=== PATIENT | female | born 1990 | race Caucasian/White ===

== ENCOUNTER 2019-02-26 02:55 | Inpatient (IN) ==
[2019-02-26] MEDS ORDERED: OXYTOCIN 30 UNITS/500 ML BAG IV PRN ×2 (03:29→10:16)
[2019-02-26] MEDS ORDERED: ePHEDrine sulfate 50 MG/ML AMP ONE (03:45)
[2019-02-26] MEDS ORDERED: BUPIVACAINE 0.25% 30 ML VIAL ONE ×2 (03:45→05:19)
[2019-02-26] MEDS ORDERED: fentaNYL citrate 100 MCG/2 ML VIAL ONE (03:46)
[2019-02-26] MEDS ORDERED: fentaNYL 2MCG/ML ROPIV 1.25MG/ML 100 ML BAG EPI ONE (03:47)
[2019-02-26 03:49] LABS: Hematocrit (blood only) 33.1 % (37-47); Hemoglobin 11.7 g/dL (12.0-16.0); Mean Corpuscular Hemoglobin 32.2 pg (25-34); Mean Corpuscular Volume 91.2 fL (80-100); Mean Platelet Volume 10.7 fL (7.4-10.4); Platelet Count 199 K/uL (130-400); RDW Coefficient of Variation 12.7 % (11.5-14.5); Red Blood Count 3.63 M/uL (4.2-5.4); White Blood Count 14.86 K/uL (4.8-10.8)
[2019-02-26] MEDS: LACTATED RINGER'S 1,000 ML IV PRN ×2 (03:50→04:43)
[2019-02-26 04:04] LABS: Mean Corpuscular Hgb Conc 35.3 g/dL (32-36)
[2019-02-26 04:06] LABS: Albumin Level 2.7 gm/dl (3.4-5.0); Calcium 8.6 mg/dl (8.5-10.1); Creatinine Clr Calc Pharmacy 133.3 ml/min; Est GFR (Non-African American) 114.8; Potassium 3.6 mmol/L (3.5-5.1)
[2019-02-26 04:08] LABS: Albumin Globulin Ratio 0.6 (0.9-2); Bilirubin,Total 0.3 mg/dl (0.2-1); Globulin 4.2 gm/dl (2.5-4.0); Total Protein 6.9 gm/dl (6.4-8.2)
--- NOTE | 2019-02-26 04:33 | Anesthesiology Consultation ---
Date of Service February 26, 2019 Assessment & Plan (1) Encounter for pre-operative examination: Chart Review Chart Review: Patient NOT seen in Pre Admission Testing and Acceptable Risk for Labor Epidural Consults Requested none ASA ASA2 Proposed Anesthesia Anesthesia Type: Labor Epidural Risk / Benefits Reviewed With: PT / POA / Parent / Guardian, Accepts Plan and Informed Consent Obtained History Height/Weight Height: 5 ft 5 in Weight: 94.347 kg Allergies Allergy/AdvReac Type Severity Reaction Status Date / Time amoxicillin Allergy HIVES, RASH Verified 02/26/19 03:11 Medications Home Medications Medication Instructions Recorded Confirmed Last Taken prenat.vits,angel,qtq-jmnl-bnmwm 1 tsp PO DAILY 12/12/18 02/26/19 02/25/19 07:30 Active Medications Generic Name Dose Route Start Last Admin Trade Name Freq PRN Reason Stop Dose Admin Lactated Ringer's 1,000 mls @ 125 mls/hr 02/26/19 03:29 02/26/19 04:43 Lr IV 03/28/19 03:28 125 mls/hr .Q8H PRN Administration L&D Protocol Protocol NPO Date Last Intake of Fluids: 02/26/19 Time Last Intake of Fluids: 05:15 Date Last Intake of Solids: 02/25/19 Time Last Intake of Solids: 18:30 Past Medical History Medical History History of varicella Hx of migraines Exercise / Class Metabolic Activity III < 4 Walking/Shop/Light housework Past Family History Family History Father Stroke Diabetes Hypertension Mother Diabetes Osteoporosis Thyroid disease Past Surgical History Surgical History H/O hand surgery broken thumb S/P wisdom tooth extraction 2008 Past Anesthesia History No Hx of Anesthesia Complications History of PONV No Hx of PONV and No Hx of Motion Sickness Social History Smoking Status: Never smoker Hx Alcohol Use: No Hx Substance Use: No Review of Systems Patient denies history of abnormal bleeding or bleeding disorder. Patient denies active use of anticoagulants other than low dose aspirin. Patient denies numbness, tingling or weakness in lower extremities. Physical Exam Vital Signs Last Vital Signs Temp 36.8 C 02/26/19 03:12 Pulse 70 02/26/19 05:09 Resp 18 02/26/19 05:04 BP 142/80 H 02/26/19 05:09 Pulse Ox 94 02/26/19 05:07 Constitutional not obese (Gravid uterus) ENMT Mouth: no TMJ abnormality and oral opening not small Thyromental Distance: > or= 3.5 Finger Breadths Mallampati Class: II Neck normal visual inspection; neck extension not limited Respiratory normal respiratory effort Auscultation: lungs clear to auscultation bilaterally Cardiovascular Rate/Rhythm: regular rate and regular rhythm Heart Sounds: no murmur Neurologic moves all extremities Psychiatric Orientation: alert and oriented x 3 Testing Laboratory Results 02/26/19 03:38 02/26/19 03:38
[2019-02-26] MEDS ORDERED: NALOXONE HCL 0.4 MG/1 ML VIAL/CARP IV PRN (05:23)
[2019-02-26] MEDS ORDERED: NALOXONE HCL 1 MG in SODIUM CHLORIDE 0.9% 1000ML 1,000 ML IV PRN (05:23)
[2019-02-26] MEDS ORDERED: ONDANSETRON INJ 2 MG/ML 2 ML VIAL IV PRN (05:23)
[2019-02-26] MEDS ORDERED: DiphenhydrAMINE HCL 50 MG/ML VIAL IV PRN (05:23)
[2019-02-26] MEDS ORDERED: ePHEDrine sulfate 50 MG/ML AMP IV PRN (05:23)
[2019-02-26] MEDS ORDERED: fentaNYL 2MCG/ML ROPIV 1.25MG/ML 100 ML BAG EPI PRN (05:23)
[2019-02-26] MEDS ORDERED: NALBUPHINE HCL INJ 10 MG/ML AMP IV PRN (05:23)
--- NOTE | 2019-02-26 08:46 | History & Physical Report ---
Date of Service February 26, 2019 Assessment & Plan (1) Supervision of normal first : begin 2nd stage. fhts reassuring overall. History of Present Illness Chief Complaint: Regular ctx Primary Care Provider: NO PCP 28yo at 40+wks ega presents to L&D with above cc. Contractions closer and stronger and came to L&D and was 4cm dilated requesting epidural. no rom. no vb. +FM pnc c/b postdates pnl rh pos, rubella immune, gbs negative obh: g1 gynh: no stds, normal pap smears pmh: neg psh: thumb surgery, wisdom teeth Allergies Allergy/AdvReac Type Severity Reaction Status Date / Time amoxicillin Allergy HIVES, RASH Verified 02/26/19 03:11 Home Medications Home Medications Medication Instructions Recorded Confirmed Type prenat.vits,angel,lwg-sygg-baafq 1 tsp PO DAILY 12/12/18 02/26/19 History Patient History Medical History History of varicella Hx of migraines Surgical History H/O hand surgery broken thumb S/P wisdom tooth extraction 2008 Family History Father Stroke Diabetes Hypertension Mother Diabetes Osteoporosis Thyroid disease Social History Preferred Language: Turkmen Communication Ability: Effective Construction Code Administrator Required: No Beliefs That Will Affect Care: None marital status: Current Living Situation: Spouse Current Living Situation Comment: house with Other Information That Helps Us Care for You: No Feels Safe at Home: Yes Safety Concerns: Feels Safe At This Time Smoking Status: Never smoker Hx Alcohol Use: No Hx Substance Use: No Review of Systems as per Subjective / HPI Physical Exam Constitutional: WD/WN, vitals as above Gastrointestinal (Abdomen): soft gravid nt Musculoskeletal: tr edema nontender calves Neurologic: grossly normal Psychiatric: A+Ox3, euthymic affect Genitourinary: Manual OB Exam: + cervical dilation 10 cm, + cervical effacement 100%, + station + 2 and + amniotic fluid meconium (thick) Results & Data Vital Signs (Past 12 Hours) Vital Signs Temp Pulse Resp BP Pulse Ox 02/26/19 08:38 80 131/64 02/26/19 08:37 126 H 91 02/26/19 08:35 117 H 95 02/26/19 08:31 87 88 L 02/26/19 08:30 87 95 02/26/19 08:25 111 H 96 02/26/19 08:23 83 125/57 L 02/26/19 08:20 110 H 96 02/26/19 08:18 82 89 L 02/26/19 08:15 84 85 L 02/26/19 08:12 84 89 L 02/26/19 08:10 83 97 02/26/19 08:08 83 119/65 02/26/19 08:05 124 H 96 02/26/19 08:00 104 H 97 02/26/19 07:55 86 129/62 98 02/26/19 07:54 104 H 92 02/26/19 07:50 87 98 02/26/19 07:45 96 H 100 02/26/19 07:40 81 99 02/26/19 07:37 78 123/68 02/26/19 07:35 80 98 02/26/19 07:34 87 91 02/26/19 07:30 80 98 02/26/19 07:25 76 98 02/26/19 07:23 68 118/61 02/26/19 07:20 86 99 02/26/19 07:15 74 98 02/26/19 07:10 81 97 02/26/19 07:07 75 112/58 L 02/26/19 07:05 76 98 02/26/19 07:04 98.4 F 20 02/26/19 07:00 86 98 02/26/19 06:55 71 97 02/26/19 06:53 74 119/59 L 02/26/19 06:50 77 97 02/26/19 06:45 69 99 02/26/19 06:40 81 99 02/26/19 06:38 80 114/83 02/26/19 06:35 78 98 02/26/19 06:30 79 99 02/26/19 06:25 69 98 02/26/19 06:22 81 143/73 H 02/26/19 06:20 76 97 02/26/19 06:15 78 98 02/26/19 06:10 98.4 F 73 18 97 02/26/19 06:07 80 124/66 02/26/19 06:05 81 98 02/26/19 06:00 79 99 02/26/19 05:55 78 98 02/26/19 05:52 78 127/69 02/26/19 05:50 72 99 02/26/19 05:45 74 18 97 02/26/19 05:40 82 98 02/26/19 05:37 74 126/68 02/26/19 05:35 73 140/79 99 02/26/19 05:33 73 138/79 02/26/19 05:31 75 132/73 02/26/19 05:30 81 100 02/26/19 05:29 88 141/77 H 91 02/26/19 05:27 76 145/77 H 02/26/19 05:25 67 128/67 96 02/26/19 05:23 79 141/78 H 02/26/19 05:22 69 93 02/26/19 05:21 83 141/76 H 02/26/19 05:20 79 97 02/26/19 05:19 73 138/69 02/26/19 05:17 80 134/67 02/26/19 05:15 81 18 136/66 99 02/26/19 05:14 68 94 02/26/19 05:13 74 156/68 H 02/26/19 05:11 65 150/83 H 02/26/19 05:10 76 99 02/26/19 05:09 70 142/80 H 02/26/19 05:07 74 147/82 H 94 02/26/19 05:05 67 155/72 H 99 02/26/19 05:04 18 02/26/19 05:03 68 153/83 H 02/26/19 05:01 72 139/79 02/26/19 05:00 73 18 97 02/26/19 04:55 67 98 02/26/19 04:50 61 98 02/26/19 04:45 60 99 02/26/19 04:41 20 02/26/19 04:40 74 97 02/26/19 03:12 98.2 F 73 18 146/85 H 02/26/19 03:10 66 166/94 H Code Status & VTE Plan VTE Prophylaxis Plan VTE Prophylaxis will be ordered: No Monitoring External Monitor 155 mod variability, +variables Tocodynamometer q2
--- NOTE | 2019-02-26 09:35 | Labor Progress Brief Note ---
Date of Service February 26, 2019 Subjective Reason For Note: Routine Evaluation pushing effectively Assessment & Plan (1) Supervision of normal first : pushing effectively, fhts categ 2, anticip delivery soon. Physical Exam Constitutional: WD/WN, vitals as above Genitourinary: Manual OB Exam: + cervical dilation 10 cm, + cervical effacement 100%, + station + 3 and + amniotic fluid meconium OB Exam Monitor Tracing: + external FHT monitor used (150 mod variability, variables), + category II and + normal FHT variability Results & Data Vital Signs (Past 12 Hours) Vital Signs Temp Pulse Resp BP Pulse Ox 02/26/19 09:30 88 95 02/26/19 09:25 80 97 02/26/19 09:22 84 151/70 H 89 L 02/26/19 09:20 84 95 02/26/19 09:15 85 96 02/26/19 09:12 78 89 L 02/26/19 09:10 91 H 94 02/26/19 09:07 86 126/63 02/26/19 09:05 91 H 95 02/26/19 09:00 84 96 02/26/19 08:58 100 H 90 02/26/19 08:55 89 96 02/26/19 08:53 81 128/64 02/26/19 08:50 85 97 02/26/19 08:45 121 H 96 02/26/19 08:43 91 H 91 02/26/19 08:40 92 H 96 02/26/19 08:38 80 131/64 02/26/19 08:37 126 H 91 02/26/19 08:35 117 H 95 02/26/19 08:31 87 88 L 02/26/19 08:30 87 95 02/26/19 08:25 111 H 96 02/26/19 08:23 83 125/57 L 02/26/19 08:20 110 H 96 02/26/19 08:18 82 89 L 02/26/19 08:15 84 85 L 02/26/19 08:12 84 89 L 02/26/19 08:10 83 97 02/26/19 08:08 83 119/65 02/26/19 08:05 124 H 96 02/26/19 08:00 104 H 97 02/26/19 07:55 86 129/62 98 02/26/19 07:54 104 H 92 02/26/19 07:50 87 98 02/26/19 07:45 96 H 100 02/26/19 07:40 81 99 02/26/19 07:37 78 123/68 02/26/19 07:35 80 98 02/26/19 07:34 87 91 02/26/19 07:30 80 98 02/26/19 07:25 76 98 02/26/19 07:23 68 118/61 02/26/19 07:20 86 99 02/26/19 07:15 74 98 02/26/19 07:10 81 97 02/26/19 07:07 75 112/58 L 02/26/19 07:05 76 98 02/26/19 07:04 98.4 F 20 02/26/19 07:00 86 98 02/26/19 06:55 71 97 02/26/19 06:53 74 119/59 L 02/26/19 06:50 77 97 02/26/19 06:45 69 99 02/26/19 06:40 81 99 02/26/19 06:38 80 114/83 02/26/19 06:35 78 98 02/26/19 06:30 79 99 02/26/19 06:25 69 98 02/26/19 06:22 81 143/73 H 02/26/19 06:20 76 97 02/26/19 06:15 78 98 02/26/19 06:10 98.4 F 73 18 97 02/26/19 06:07 80 124/66 02/26/19 06:05 81 98 02/26/19 06:00 79 99 02/26/19 05:55 78 98 02/26/19 05:52 78 127/69 02/26/19 05:50 72 99 02/26/19 05:45 74 18 97 02/26/19 05:40 82 98 02/26/19 05:37 74 126/68 02/26/19 05:35 73 140/79 99 02/26/19 05:33 73 138/79 02/26/19 05:31 75 132/73 02/26/19 05:30 81 100 02/26/19 05:29 88 141/77 H 91 02/26/19 05:27 76 145/77 H 02/26/19 05:25 67 128/67 96 02/26/19 05:23 79 141/78 H 02/26/19 05:22 69 93 02/26/19 05:21 83 141/76 H 02/26/19 05:20 79 97 02/26/19 05:19 73 138/69 02/26/19 05:17 80 134/67 02/26/19 05:15 81 18 136/66 99 02/26/19 05:14 68 94 02/26/19 05:13 74 156/68 H 02/26/19 05:11 65 150/83 H 02/26/19 05:10 76 99 02/26/19 05:09 70 142/80 H 02/26/19 05:07 74 147/82 H 94 02/26/19 05:05 67 155/72 H 99 02/26/19 05:04 18 02/26/19 05:03 68 153/83 H 02/26/19 05:01 72 139/79 02/26/19 05:00 73 18 97 02/26/19 04:55 67 98 02/26/19 04:50 61 98 02/26/19 04:45 60 99 02/26/19 04:41 20 02/26/19 04:40 74 97 02/26/19 03:12 98.2 F 73 18 146/85 H 02/26/19 03:10 66 166/94 H
[2019-02-26] MEDS ORDERED: miSOPROStoL 200 MCG TAB ONE (09:55)
[2019-02-26] MEDS ORDERED: ACETAMINOPHEN 325 MG TAB PO PRN (10:02)
[2019-02-26] MEDS ORDERED: ACETAMINOPHEN W/CODEINE #3 1 TAB PO PRN (10:02)
--- NOTE | 2019-02-26 10:06 | Delivery Summary ---
Vaginal Delivery Summary Date of Service February 26, 2019 The patient dilated to complete and pushed to deliver a viable male infant s 8 and 8 via over intact perineum. Mouth and nose bulb suctioned at perineum. Body cord noted. Shoulders and body delivered with ease. Infant was vigorous and crying at and covered in meconium. Cord clamped at 30 seconds of life and infant to maternal abdomen where the cord was then doubly clamped and cut. Placenta delivered spontaneously and intact, three-vessel cord. Hemostasis not achieved with dilute pitocin and bimanual uterine massage and therefore 800mcg rectal cytotec administered and tone of uterus improved. Bladder had recently been drained for 200cc of urine and not palpably full. Cervix and sulci intact. Small vaginal laceration on right extending to right labia noted and repaired with 3-0 vicryl. EBL 500 cc. Mother and baby stable recovery.
[2019-02-26] MEDS ORDERED: HYDROCORTISONE ACETATE 25 MG SUPP PR PRN (10:16)
[2019-02-26] MEDS ORDERED: miSOPROStoL 200 MCG TAB PR ONE (10:16)
[2019-02-26] MEDS ORDERED: SUPERCREAM 0.870% 15 GM JAR EXT PRN (10:16)
[2019-02-26] MEDS ORDERED: DIPHTHERIA/TETANUS/PERTUSSIS 0.5 ML SYR/VIAL IM ONE (10:16)
[2019-02-26] MEDS ORDERED: BENZOCAINE 20% AER SPR 82.5 GM CAN EXT PRN (10:16)
[2019-02-26] MEDS ORDERED: OXYTOCIN 20 UNITS in LACTATED RINGER'S 1,000 ML IV SCH (10:30)
--- NOTE | 2019-02-26 10:36 | Anesthesia Procedure Note ---
Date of Service February 26, 2019 Anesthesia Post Epidural Note Vital Signs Vital Signs: Temp Pulse Resp BP Pulse Ox 98.4 F 85 20 130/64 96 02/26/19 07:04 02/26/19 10:22 02/26/19 07:04 02/26/19 10:22 02/26/19 09:50 Notes Mental Status: alert / awake / arousable and participated in evaluation Nausea / Vomiting: adequately controlled Pain: adequately controlled Airway Patency, RR, SpO2: stable & adequate BP & HR: stable & adequate Hydration State: stable & adequate Neuraxial Anesthesia: was administered and sensory block is resolving Anesthetic Complications: no major complications apparent and Pt Satisfied with anesthetic care Epidural: Removed without complications and With tip intact
[2019-02-26] MEDS: IBUPROFEN 600 MG TAB PO PRN ×2 (10:57→18:50)
[2019-02-26] MEDS: DOCUSATE SODIUM 100 MG CAP PO SCH (21:21)
[2019-02-27] MEDS: IBUPROFEN 600 MG TAB PO PRN ×4 (02:51→23:52)
--- NOTE | 2019-02-27 05:25 | Obstetrical Progress Note ---
Date of Service February 27, 2019 Assessment & Plan (1) : 28 yo s/p VD @ 40W4D -PPD# 1 - GBS negative, Blood Type A+ - Feels well today. Eating well, voiding well, ambulating well. - Pain well controlled. - Routine post care - After discharge will have [address] Ross. Supervising Physician Co-Signing Physician Notes Resident Physician Supervision Note: I was present with Dr. Dockery during the history and exam. I discussed the case with the resident and agree with the findings and plan as documented in the note. Any exceptions or clarifications are listed here: doing well, bleeding tapering, . ff 2 down nt. nt calves, some tr edema. routine care. hgb pending. Documented By: Azul Ross MD, FACOG Subjective Doing well this morning, she is describes it as going, "good." Bleeding is about a heavy period. Pain is well controlled with Motrin. She had no questions or concerns this morning. Review of Systems Review of Systems: Denies fever, chills, sweats Denies shortness of breath, difficulty breathing, chest pain, palpitations, chest pressure. Denies breast pain. Denies dysuria. Denies headache. Physical Exam Physical Exam: General: Alert, oriented. No acute distress. Cardiac: Regular rate and rhythm, no murmurs/rubs/gallops. Respiratory: Clear to auscultation anterior and posteriorly, no wheezes/rales/rhonchi. No increased work of breathing. Symmetrical chest rise. No respiratory distress. Abdomen: Soft, nontender, nondistended. Bowel sounds present. Uterus: Uterine fundus firm, palpable 1 cm below umbilicus. Lower Extremities: No lower extremity edema or swelling. No deep calf pain. Sharmila's negative bilaterally. Results & Data Vital Signs (Past 12 Hours) Vital Signs Temp Pulse Resp BP Pulse Ox 02/27/19 03:10 36.7 C 75 16 138/84 96 02/26/19 23:15 36.6 C 80 16 148/80 H 95 02/26/19 19:25 36.8 C 76 16 136/81 97 PG Care Time/CCT Total # of Minutes Spent Total Time Spent with Patient: Total time spent is greater than 50% in coordination of care (as documented) at patient's floor/unit and/or counseling patient: Resident Activity Tracking Resident Involvement: Resident Care Provided Care Provided: [facility]
[2019-02-27 08:05] LABS: Hematocrit (blood only) 27.4 % (37-47); Hemoglobin 9.7 g/dL (12.0-16.0)
[2019-02-27] MEDS: DOCUSATE SODIUM 100 MG CAP PO SCH ×2 (08:19→20:06)
== END 2019-02-28 00:15 | disposition home or self-care (01) | DRG 768 ==
LOC: OPB 02:55 → 4S1 02:58 → 4S2 12:30

== ENCOUNTER 2024-07-06 07:25 | Inpatient (IN) ==
--- NOTE | 2024-07-06 07:41 | History & Physical Report ---
Date of Service July 06, 2024 Assessment & Plan (1) Encounter for induction of labor: (2) Large for gestational age fetus affecting management of mother: Plan Admit for IOL d/t LGA - us 06/16 estimated 3451gm (7#10oz) +bhx ctx, +FM, no rom, no vb VSS, H/H wnl, FHT category 1 Start on pit (2 mU/min, go up by 2) Pt desires epidural for analgesia Rh+, GBS neg, RI Admission and Anticipated Discharge Date Admission Date: July 06, 2024 History of Present Illness Chief Complaint: IOL Primary Care Provider: Aliya Lorenz Patient is a 33 y/o female currently at 39 1/7 WGA (w JOHN 07/12/24 as determined by LMP) who is here for IOL. Her first was uncomplicated, and she reports heavy bleeding during delivery but not to the point of requiring transfusion. Her second resulted in MAB managed w cytotec This was uncomplicated except LGA fetus w efw 94% at 36 wks. She has had regular appointments with OB. She denies fevers, fatigue, MITCHELL, SOB, chest pain, leg swelling, or n/v exceeding baseline -related symptoms. +ramone-domingo ctx, +FM, no rom, no vb Blood type: A+ Antibody screen: Neg GBS: Neg Rubella: Immune VDRL/RPR: Neg Gonorrhea: Not detected Chalmydia: Not detected HIV: Non-reactive HbSAg: Non-reactive Allergies Allergy/AdvReac Type Severity Reaction Status Date / Time amoxicillin Allergy HIVES, RASH Verified 07/06/24 07:40 Home Medications Medication Instructions Recorded Confirmed Type prenat.vits,angel,tyg-assb-cosqs 1 tsp PO DAILY 12/12/18 07/06/24 History Saccharomyces boulardii [Daily 1 tab PO DAILY 05/14/23 07/06/24 History Probiotic (S. boulardii)] magnesium chloride 1 tab PO DAILY 09/03/23 07/06/24 History Vitamin C 1 tab PO DAILY 07/06/24 07/06/24 History ferrous sulfate 325 mg (65 mg 325 mg PO DAILY 07/06/24 07/06/24 History iron) tablet (iron) Past Med/Surg History Problem List (Updated 02/20/25 @ 08:47 by Jacquelyn Cabral MD, FACOG) Large for gestational age fetus affecting management of mother Encounter for induction of labor Encounter for anatomic survey Prior miscarriage with , antepartum Encounter for supervision of normal in multigravida Encounter for pre-operative examination Medical History Missed History of varicella Hx of migraines Surgical History History of dental surgery H/O hand surgery broken thumb S/P wisdom tooth extraction 2008 Family History Father Stroke Diabetes Hypertension Mother Diabetes Osteoporosis Thyroid disease Denies family history of Ovarian cancer Breast cancer Colorectal cancer Social History Smoking Status: Never smoker Do You Dip or Chew Tobacco: No; Hx Alcohol Use: No Hx Substance Use: No Preferred Language: Croatian Communication Ability: Effective Econometrician Required: No Beliefs That Will Affect Care: None marital status: marital status details: Jonathan Ortiz (39) [phone] Current Living Situation: Spouse and Family Current Living Situation Comment: Patient lives with spouse, child, and a dogs current occupational status: employed 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 Physical Exam Physical Exam: General: Alert and oriented. No acute distress CV: Regular rate and rhythm. No murmurs. Respiratory: CTA bilaterally. No increased work of breathing. Symmetrical chest rise. Abdomen: Gravid: Soft, nontender upon palpation Pelvic: 2.5/75/-3/soft per Dr. Cabral Lower extremities: Trace LE edema. No deep calf pain. Sharmila's negative bilaterally. Results & Data Results & Data Vital Signs (Past 12 Hours) Vital Signs Pulse BP 07/06/24 07:34 90 126/80 Supervising Physician Co-Signing Physician Notes Resident Physician Supervision Note: I interviewed and examined the patient. Discussed with Dr. Liriano and agree with findings and plan as documented in the note. Any exceptions or clarifications are listed here: Patient is a with iup at 39 1/7 weeks with lga fetus throughout . Last us as noted above. cx today 2.5/75/-2/mid/soft. contractions nohemi. fetus category one. Discussed that she will need to push the baby out unassisted. Would not instrument for delivery given potential for shoulder dystocia. Patient's last bay was 6.5# and she pushed for two hours. Discussed the potential for shoulder dystocia but do not think the baby is 5000+gm, no gdm. Discussed the potential for primary c/s but she would like vaginal delivery. Plan pitocin induction, arom, epidural on demand. Documented By: Jacquelyn Cabral MD, FACOG Resident Activity Tracking Resident Involvement: Resident Care Provided Care Provided: Adult Hospital Medicine and OB Delivery
[2024-07-06] MEDS ORDERED: LIDOCAINE 1% LOCAL 20 ML VIAL INFIL PRN (08:08)
[2024-07-06 08:43] LABS: Hematocrit (blood only) 33.5 % (37.0-47.0); Hemoglobin 11.7 g/dl (12.0-16.0); Mean Corpuscular Hemoglobin 31.5 pg (25.0-34.0); Mean Corpuscular Hgb Conc 34.9 g/dL (32.0-36.0); Mean Corpuscular Volume 90.1 fL (80.0-100.0); Platelet Count 212 K/uL (130-400); RDW Coefficient of Variation 12.8 % (11.5-14.5); Red Blood Count 3.72 M/uL (4.20-5.40); White Blood Count 10.43 K/ul (4.8-10.8)
[2024-07-06] MEDS: LACTATED RINGER'S 1,000 ML IV PRN (08:52)
[2024-07-06] MEDS: OXYTOCIN 30 UNITS/NSS 30 UNITS/500 ML BAG IV PRN (08:58)
[2024-07-06] MEDS ORDERED: NALOXONE HCL 0.4 MG/1 ML VIAL/CARP IV PRN (13:22)
[2024-07-06] MEDS ORDERED: fentaNYL citrate PF 100 MCG/2 ML VIAL EPI PRN (13:22)
[2024-07-06] MEDS ORDERED: LIDOCAINE 2% MPF LOCAL 5 ML VIAL EPI PRN (13:22)
[2024-07-06] MEDS ORDERED: NALBUPHINE HCL INJ 10 MG/ML AMP IV PRN (13:22)
[2024-07-06] MEDS ORDERED: ONDANSETRON INJ 2 MG/ML 2 ML VIAL IV PRN (13:22)
[2024-07-06] MEDS ORDERED: diphenhydrAMINE 50 MG/ML VIAL IV PRN (13:22)
[2024-07-06] MEDS ORDERED: ROPIVACAINE 0.5% PF 5 MG/ML 20 ML VIAL EPI PRN (13:22)
[2024-07-06] MEDS ORDERED: NALOXONE HCL 1 MG in SODIUM CHLORIDE 0.9% 1,000 ML IV PRN (13:22)
[2024-07-06] MEDS ORDERED: BUPIVACAINE 0.25% PF 30 ML VIAL EPI PRN (13:22)
[2024-07-06] MEDS ORDERED: fentANYL 2 MCG/ML BUPIVacaine 0.125%-NSS 100ML BAG EPI PRN (13:22)
[2024-07-06] MEDS ORDERED: ePHEDrine sulfate 50 MG/ML AMP IV PRN (13:22)
[2024-07-06] MEDS ORDERED: SODIUM CHLORIDE 0.9% PF INJ 10 ML VIAL EPI PRN (13:22)
--- NOTE | 2024-07-06 13:22 | Anesthesiology Consultation ---
Date of Service July 06, 2024 Assessment & Plan ASA ASA2 Proposed Anesthesia Anesthesia Type: Labor Epidural Risk / Benefits Reviewed With: PT / POA / Parent / Guardian, Accepts Plan and Informed Consent Obtained History Height/Weight Height: 5 ft 5 in Weight: 108.912 kg Allergies Allergy/AdvReac Type Severity Reaction Status Date / Time amoxicillin Allergy HIVES, RASH Verified 07/06/24 07:40 Medications Home Medications Medication Instructions Recorded Confirmed Last Taken prenat.vits,angel,zch-vmnj-fvepx 1 tsp PO DAILY 12/12/18 07/06/24 07/05/24 19:00 Saccharomyces boulardii [Daily 1 tab PO DAILY 05/14/23 07/06/24 07/05/24 19:00 Probiotic (S. boulardii)] magnesium chloride 1 tab PO DAILY 09/03/23 07/06/24 07/05/24 19:00 Vitamin C 1 tab PO DAILY 07/06/24 07/06/24 07/05/24 19:00 ferrous sulfate 325 mg (65 mg 325 mg PO DAILY 07/06/24 07/06/24 07/05/24 19:00 iron) tablet (iron) Active Medications Generic Name Dose Route Start Last Admin Trade Name Freq PRN Reason Stop Dose Admin Lactated Ringer's 1,000 mls @ 125 mls/hr 07/06/24 08:08 07/06/24 13:50 Lr IV 07/07/24 08:07 125 mls/hr .Q8H PRN Titration L&D Protocol Protocol Oxytocin 30 units in 500 mls @ 20 mls/hr 07/06/24 08:08 07/06/24 14:30 Pitocin 30 Units/Nss IV 07/08/24 08:07 1.2 units/hr .Q24H PRN 20 mls/hr Labor Induction/Augmentation Titration Protocol 1.2 UNITS/HR Past Medical History Medical History Missed History of varicella Hx of migraines Exercise / Class Metabolic Activity II 4-5 Yardwork/Stairs/Walk up hill Past Family History Family History Father Stroke Diabetes Hypertension Mother Diabetes Osteoporosis Thyroid disease Denies family history of Ovarian cancer Breast cancer Colorectal cancer Past Surgical History Surgical History History of dental surgery H/O hand surgery broken thumb S/P wisdom tooth extraction 2008 Past Anesthesia History No Hx of Anesthesia Complications and No Family Hx of Anesthesia Complications History of PONV No Hx of PONV and No Hx of Motion Sickness Social History Smoking Status: Never smoker Do You Dip or Chew Tobacco: No Hx Alcohol Use: No Hx Substance Use: No substance use type: does not use Review of Systems denies fever/cough/ colds/ chest pain/ SOB/ SUZIE denies SUZIE Physical Exam Vital Signs Last Vital Signs Temp 37.5 C 07/06/24 12:00 Pulse 69 07/06/24 14:45 Resp 18 07/06/24 12:00 BP 93/55 L 07/06/24 14:43 Pulse Ox 100 07/06/24 14:45 ENMT Mouth: no TMJ abnormality and no dentition abnormality Thyromental Distance: > or= 3.5 Finger Breadths Mallampati Class: II Neck neck extension not limited Respiratory normal respiratory effort; no respiratory distress Auscultation: lungs clear to auscultation bilaterally Cardiovascular Rate/Rhythm: regular rate and regular rhythm Neurologic moves all extremities Psychiatric Orientation: alert and oriented x 3 Testing Laboratory Results 07/06/24 08:24
[2024-07-06] MEDS: fentaNYL citrate PF 100 MCG/2 ML VIAL ONE (13:53)
[2024-07-06] MEDS: LIDOCAINE 2%/EPINEPHRINE 1:200,000 20 ML PF ONE (13:53)
[2024-07-06] MEDS: BUPIVACAINE 0.25% PF 30 ML VIAL ONE (13:53)
[2024-07-06] MEDS: fentANYL 2 MCG/ML BUPIVacaine 0.125%-NSS 100ML BAG ONE (13:56)
[2024-07-06] MEDS: BUPIVACAINE 0.25% PF 30 ML VIAL EPI STA (14:00)
[2024-07-06] MEDS: SODIUM CHLORIDE 0.9% PF INJ 10 ML VIAL ONE (14:00)
[2024-07-06] MEDS: LIDOCAINE 2%/EPINEPHRINE 1:200,000 20 ML PF EPI STA (14:01)
[2024-07-06] MEDS: SODIUM CHLORIDE 0.9% PF INJ 10 ML VIAL EPI STA (14:01)
[2024-07-06] MEDS: fentaNYL citrate PF 100 MCG/2 ML VIAL EPI STA (14:01)
[2024-07-06] MEDS: ePHEDrine sulfate 50 MG/ML AMP ONE (14:28)
--- NOTE | 2024-07-06 15:06 | Labor Progress Brief Note ---
Date of Service July 06, 2024 Subjective comfortable after epidural Assessment & Plan (1) Large for gestational age fetus affecting management of mother: (2) Encounter for induction of labor: Plan continue current management plan. fetus overall category one. Admission and Anticipated Discharge Date Admission Date: July 06, 2024 Physical Exam Physical Exam: cx--3+/75/-2 arom--copious clear toco--q2-4min, pit at 20 iupc placed efm--130s with mod variability, accels to 160s, a couple of late decels after epidural that resolved with position change Results & Data Vital Signs (Past 12 Hours) Vital Signs Temp Pulse Resp BP Pulse Ox 07/06/24 15:00 100 07/06/24 15:00 81 07/06/24 15:00 93 07/06/24 15:00 86 07/06/24 14:59 70 07/06/24 14:59 121/61 07/06/24 14:55 100 07/06/24 14:55 82 07/06/24 14:50 98 07/06/24 14:50 68 07/06/24 14:45 100 07/06/24 14:45 69 07/06/24 14:43 65 07/06/24 14:43 93/55 L 07/06/24 14:40 99 07/06/24 14:40 74 07/06/24 14:35 98 07/06/24 14:35 68 07/06/24 14:30 99 07/06/24 14:30 74 07/06/24 14:29 75 07/06/24 14:29 99/47 L 07/06/24 14:28 69 07/06/24 14:28 92/47 L 07/06/24 14:25 98 07/06/24 14:25 67 07/06/24 14:20 100 07/06/24 14:20 69 07/06/24 14:15 99 07/06/24 14:15 81 07/06/24 14:13 76 07/06/24 14:13 112/61 07/06/24 14:10 98 07/06/24 14:10 80 07/06/24 14:05 97 07/06/24 14:05 77 07/06/24 14:00 98 07/06/24 14:00 81 07/06/24 13:58 76 02/20/25 13:58 109/59 L 07/06/24 13:55 99 07/06/24 13:55 86 07/06/24 13:55 113/57 L 07/06/24 13:50 100 07/06/24 13:50 83 07/06/24 13:48 85 07/06/24 13:48 134/74 07/06/24 13:45 99 07/06/24 13:45 80 07/06/24 13:40 100 07/06/24 13:40 84 07/06/24 13:39 91 07/06/24 13:39 91 H 07/06/24 13:35 100 07/06/24 13:35 75 07/06/24 13:30 100 07/06/24 13:30 77 07/06/24 13:25 100 07/06/24 13:25 75 07/06/24 13:20 100 07/06/24 13:20 73 07/06/24 12:55 74 07/06/24 12:55 117/68 07/06/24 12:00 18 07/06/24 12:00 37.5 C 18 07/06/24 12:00 73 07/06/24 12:00 123/66 07/06/24 11:05 74 07/06/24 11:05 123/72 07/06/24 10:00 77 07/06/24 10:00 112/55 L 07/06/24 08:54 18 07/06/24 08:54 37.5 C 18 07/06/24 08:54 77 07/06/24 08:54 114/68 07/06/24 07:45 37.5 C 90 18 126/80 07/06/24 07:34 90 126/80 Coding Level of Care Code None Diagnoses Large for gestational age fetus affecting management of mother O36.60X0 Encounter for induction of labor Z34.90
--- NOTE | 2024-07-06 17:10 | Labor Progress Brief Note ---
Date of Service July 06, 2024 Subjective Notes some pressure on the right side with contractions Assessment & Plan (1) Large for gestational age fetus affecting management of mother: (2) Encounter for induction of labor: Plan continue current management. making good change. fetus overall reassuring with mostly early decels noted. Admission and Anticipated Discharge Date Admission Date: July 06, 2024 Physical Exam Physical Exam: cx--7//-2 toco--q2-3min, pit at 20 efm--130s wtih mod varability, early/variable with some contractions, small accels Results & Data Vital Signs (Past 12 Hours) Vital Signs Temp Pulse Resp BP Pulse Ox 07/06/24 17:05 99 07/06/24 17:05 84 07/06/24 17:00 100 07/06/24 17:00 77 07/06/24 16:59 71 07/06/24 16:59 120/61 07/06/24 16:55 100 07/06/24 16:55 75 07/06/24 16:50 98 07/06/24 16:50 76 07/06/24 16:45 99 07/06/24 16:45 72 07/06/24 16:43 67 07/06/24 16:43 116/64 07/06/24 16:40 100 07/06/24 16:40 77 07/06/24 16:35 100 07/06/24 16:35 79 07/06/24 16:30 100 07/06/24 16:30 84 07/06/24 16:28 72 07/06/24 16:28 116/64 07/06/24 16:25 99 07/06/24 16:25 68 07/06/24 16:22 18 07/06/24 16:22 37.5 C 18 07/06/24 16:20 100 07/06/24 16:20 82 07/06/24 16:15 100 07/06/24 16:15 90 07/06/24 16:13 65 07/06/24 16:13 109/56 L 07/06/24 16:10 99 07/06/24 16:10 69 07/06/24 16:05 99 07/06/24 16:05 67 07/06/24 16:00 99 07/06/24 16:00 75 07/06/24 15:58 67 07/06/24 15:58 103/54 L 07/06/24 15:55 99 07/06/24 15:55 68 07/06/24 15:51 70 07/06/24 15:51 110/55 L 07/06/24 15:50 100 07/06/24 15:50 74 07/06/24 15:45 100 07/06/24 15:45 67 07/06/24 15:45 68 07/06/24 15:45 88/55 L 07/06/24 15:40 100 07/06/24 15:40 67 07/06/24 15:35 18 07/06/24 15:35 36.9 C 18 07/06/24 15:35 99 07/06/24 15:35 71 07/06/24 15:30 99 07/06/24 15:30 75 07/06/24 15:29 70 07/06/24 15:29 111/57 L 07/06/24 15:25 99 07/06/24 15:25 75 07/06/24 15:20 100 07/06/24 15:20 71 07/06/24 15:15 100 07/06/24 15:15 67 07/06/24 15:14 67 07/06/24 15:14 104/53 L 07/06/24 15:10 99 07/06/24 15:10 68 07/06/24 15:05 100 07/06/24 15:05 75 07/06/24 15:00 100 07/06/24 15:00 81 07/06/24 15:00 93 07/06/24 15:00 86 07/06/24 14:59 70 07/06/24 14:59 121/61 07/06/24 14:55 100 07/06/24 14:55 82 07/06/24 14:50 98 07/06/24 14:50 68 07/06/24 14:45 100 07/06/24 14:45 69 07/06/24 14:43 65 07/06/24 14:43 93/55 L 07/06/24 14:40 99 07/06/24 14:40 74 07/06/24 14:35 98 07/06/24 14:35 68 07/06/24 14:30 99 07/06/24 14:30 74 02/20/25 14:29 75 07/06/24 14:29 99/47 L 07/06/24 14:28 69 07/06/24 14:28 92/47 L 07/06/24 14:25 98 07/06/24 14:25 67 07/06/24 14:20 100 07/06/24 14:20 69 07/06/24 14:15 99 07/06/24 14:15 81 07/06/24 14:13 76 07/06/24 14:13 112/61 07/06/24 14:10 98 07/06/24 14:10 80 07/06/24 14:05 97 07/06/24 14:05 77 07/06/24 14:00 98 07/06/24 14:00 81 07/06/24 13:58 76 07/06/24 13:58 109/59 L 07/06/24 13:55 99 07/06/24 13:55 86 07/06/24 13:55 113/57 L 07/06/24 13:50 100 07/06/24 13:50 83 07/06/24 13:48 85 07/06/24 13:48 134/74 07/06/24 13:45 99 07/06/24 13:45 80 07/06/24 13:40 100 07/06/24 13:40 84 07/06/24 13:39 91 07/06/24 13:39 91 H 07/06/24 13:35 100 07/06/24 13:35 75 07/06/24 13:30 100 07/06/24 13:30 77 07/06/24 13:25 100 07/06/24 13:25 75 07/06/24 13:20 100 07/06/24 13:20 73 07/06/24 12:55 74 07/06/24 12:55 117/68 07/06/24 12:00 18 07/06/24 12:00 37.5 C 18 07/06/24 12:00 73 07/06/24 12:00 123/66 07/06/24 11:05 74 07/06/24 11:05 123/72 07/06/24 10:00 77 07/06/24 10:00 112/55 L 07/06/24 08:54 18 07/06/24 08:54 37.5 C 18 07/06/24 08:54 77 07/06/24 08:54 114/68 07/06/24 07:45 37.5 C 90 18 126/80 07/06/24 07:34 90 126/80 Coding Level of Care Code None Diagnoses Large for gestational age fetus affecting management of mother O36.60X0 Encounter for induction of labor Z34.90
[2024-07-06] MEDS ORDERED: NURSING L&D Epidural Breakthrough Pain Update ONE (17:44)
--- NOTE | 2024-07-06 18:21 | Labor Progress Brief Note ---
Date of Service July 06, 2024 Subjective noting discomfort with contractions and back pain Assessment & Plan (1) Large for gestational age fetus affecting management of mother: (2) Encounter for induction of labor: Plan Discussed options 1. immediate pushing 2. redose epidural, labor down--pros and cons of laboring down discussed. 3. trial pushing and if needs redose, can do then. She desires trial of immediate pushing. fetus reassuring. Admission and Anticipated Discharge Date Admission Date: July 06, 2024 Physical Exam Physical Exam: cx--c/c/0 toco--q2min efm--130s wtih mod variability, accels to 160s, no decels Results & Data Vital Signs (Past 12 Hours) Vital Signs Temp Pulse Resp BP Pulse Ox 07/06/24 18:16 100 07/06/24 18:16 73 07/06/24 18:13 65 07/06/24 18:13 133/68 07/06/24 18:10 97 07/06/24 18:10 83 07/06/24 18:05 100 07/06/24 18:05 81 07/06/24 18:00 100 07/06/24 18:00 74 07/06/24 18:00 72 07/06/24 18:00 132/74 07/06/24 17:55 96 07/06/24 17:55 82 07/06/24 17:50 100 07/06/24 17:50 71 07/06/24 17:45 100 07/06/24 17:45 68 07/06/24 17:44 66 07/06/24 17:44 113/67 07/06/24 17:40 100 07/06/24 17:40 83 07/06/24 17:35 100 07/06/24 17:35 69 07/06/24 17:30 100 07/06/24 17:30 75 07/06/24 17:30 71 07/06/24 17:30 120/81 07/06/24 17:25 98 07/06/24 17:25 84 07/06/24 17:20 100 07/06/24 17:20 75 07/06/24 17:15 100 07/06/24 17:15 80 07/06/24 17:13 74 07/06/24 17:13 122/64 07/06/24 17:10 98 07/06/24 17:10 80 07/06/24 17:05 18 07/06/24 17:05 37.5 C 18 07/06/24 17:05 99 07/06/24 17:05 84 07/06/24 17:00 100 07/06/24 17:00 77 07/06/24 16:59 71 07/06/24 16:59 120/61 07/06/24 16:55 100 07/06/24 16:55 75 07/06/24 16:50 98 07/06/24 16:50 76 07/06/24 16:45 99 07/06/24 16:45 72 07/06/24 16:43 67 07/06/24 16:43 116/64 07/06/24 16:40 100 07/06/24 16:40 77 07/06/24 16:35 100 07/06/24 16:35 79 07/06/24 16:30 100 07/06/24 16:30 84 07/06/24 16:28 72 07/06/24 16:28 116/64 07/06/24 16:25 99 07/06/24 16:25 68 07/06/24 16:22 18 07/06/24 16:22 37.5 C 18 07/06/24 16:20 100 07/06/24 16:20 82 07/06/24 16:15 100 07/06/24 16:15 90 07/06/24 16:13 65 07/06/24 16:13 109/56 L 07/06/24 16:10 99 07/06/24 16:10 69 07/06/24 16:05 99 07/06/24 16:05 67 07/06/24 16:00 99 07/06/24 16:00 75 07/06/24 15:58 67 07/06/24 15:58 103/54 L 07/06/24 15:55 99 07/06/24 15:55 68 07/06/24 15:51 70 07/06/24 15:51 110/55 L 07/06/24 15:50 100 07/06/24 15:50 74 07/06/24 15:45 100 07/06/24 15:45 67 07/06/24 15:45 68 07/06/24 15:45 88/55 L 07/06/24 15:40 100 07/06/24 15:40 67 07/06/24 15:35 18 07/06/24 15:35 36.9 C 18 07/06/24 15:35 99 07/06/24 15:35 71 07/06/24 15:30 99 07/06/24 15:30 75 07/06/24 15:29 70 07/06/24 15:29 111/57 L 07/06/24 15:25 99 07/06/24 15:25 75 07/06/24 15:20 100 07/06/24 15:20 71 07/06/24 15:15 100 07/06/24 15:15 67 07/06/24 15:14 67 07/06/24 15:14 104/53 L 07/06/24 15:10 99 07/06/24 15:10 68 07/06/24 15:05 100 07/06/24 15:05 75 07/06/24 15:00 100 07/06/24 15:00 81 07/06/24 15:00 93 07/06/24 15:00 86 07/06/24 14:59 70 07/06/24 14:59 121/61 07/06/24 14:55 100 07/06/24 14:55 82 07/06/24 14:50 98 07/06/24 14:50 68 07/06/24 14:45 100 07/06/24 14:45 69 07/06/24 14:43 65 07/06/24 14:43 93/55 L 07/06/24 14:40 99 07/06/24 14:40 74 07/06/24 14:35 98 07/06/24 14:35 68 07/06/24 14:30 99 07/06/24 14:30 74 07/06/24 14:29 75 07/06/24 14:29 99/47 L 07/06/24 14:28 69 07/06/24 14:28 92/47 L 07/06/24 14:25 98 07/06/24 14:25 67 07/06/24 14:20 100 07/06/24 14:20 69 07/06/24 14:15 99 07/06/24 14:15 81 07/06/24 14:13 76 07/06/24 14:13 112/61 07/06/24 14:10 98 07/06/24 14:10 80 07/06/24 14:05 97 07/06/24 14:05 77 07/06/24 14:00 98 07/06/24 14:00 81 07/06/24 13:58 76 07/06/24 13:58 109/59 L 07/06/24 13:55 99 07/06/24 13:55 86 07/06/24 13:55 113/57 L 07/06/24 13:50 100 07/06/24 13:50 83 07/06/24 13:48 85 07/06/24 13:48 134/74 07/06/24 13:45 99 07/06/24 13:45 80 07/06/24 13:40 100 07/06/24 13:40 84 07/06/24 13:39 91 07/06/24 13:39 91 H 07/06/24 13:35 100 07/06/24 13:35 75 07/06/24 13:30 100 07/06/24 13:30 77 07/06/24 13:25 100 07/06/24 13:25 75 07/06/24 13:20 100 07/06/24 13:20 73 07/06/24 12:55 74 07/06/24 12:55 117/68 07/06/24 12:00 18 07/06/24 12:00 37.5 C 18 07/06/24 12:00 73 07/06/24 12:00 123/66 07/06/24 11:05 74 07/06/24 11:05 123/72 07/06/24 10:00 77 07/06/24 10:00 112/55 L 07/06/24 08:54 18 07/06/24 08:54 37.5 C 18 07/06/24 08:54 77 07/06/24 08:54 114/68 07/06/24 07:45 37.5 C 90 18 126/80 07/06/24 07:34 90 126/80 Coding Level of Care Code None Diagnoses Large for gestational age fetus affecting management of mother O36.60X0 Encounter for induction of labor Z34.90
--- NOTE | 2024-07-06 19:11 | Delivery Summary ---
Vaginal Delivery Summary Date of Service July 06, 2024 Vaginal Delivery Summary and 1st Degree LAC Pre-operative Diagnosis: at 39 1/7 suspected lga Post-operative Diagnosis: same shoulder dystocia Procedure: pitocin induction epidural arom iupc first degree laceration and repair EBL: 311cc Anesthesia: epidural Procedure: The patient presented to labor and delivery for IOL for suspected lga. Pitocin initiated, received epidural, arom and iupc placed. She progressed quickly after arom to c/c/0. The patient pushed for about 30 min to deliver a viable male in say position. The head was very slow to delivery and the shoulders did not come spontaneously. A shoulder dystocia was identified, left shoulder anterior. Initial attempt at Shelly and suprapubic pressure was unsuccessful. That was stopped and the operators hand was placed in the vagina and attempt to rotate the ant shoulder to the right was unsuccessful. Then attempt to rotate the post shoulder anteriorly was partially successful. The infant was then delivered with maternal effort and Shelly and suprapubic pressure. The rest of the was then delivered. The nose and mouth were bulb suctioned and the was placed on the maternal abdomen for drying and attention. The baby was crying by one minute of life. Cord was clamped and cut at one minute of life. Cord blood and segment obtained. Placenta delivered spontaneous, intact with a three vessel cord. Cervix/sulci/rectum were intact. A first degree perineal laceration was repaired in the normal standard fashion. Hemostasis obtained with dilute pitocin and fundal massage. Apgars were 7/9. Mother and baby doing well at the end of the delivery. [facility] Vaginal Delivery Charge Delivery Type Details: and 1st Degree LAC
[2024-07-06] MEDS ORDERED: bisacodyL 10 MG SUPP PR PRN (19:25)
[2024-07-06] MEDS ORDERED: OXYTOCIN 30 UNITS/NSS 30 UNITS/500 ML BAG IV PRN (19:25)
[2024-07-06] MEDS ORDERED: HYDROCORTISONE ACETATE 25 MG SUPP PR PRN (19:25)
[2024-07-06] MEDS ORDERED: BENZOCAINE 20% SPRY 85 APPLN/85 GM CAN EXT PRN (19:25)
[2024-07-06 19:46] LABS: Base Excess Cord Arterial Bld -1.5 mEq/L (-9-1.8); CO2 Cord Arterial Blood 47 mmHg (39.1-73.5); HCO3 Cord Arterial Blood 25 mmol/L (19.7-28.5); Oxygen Sat Cord Arterial Blood < 60.0 % (<60); PO2 Cord Arterial Blood 27 mmHg (4.1-31.7); pH Cord Arterial Blood 7.33 (7.1-7.38)
[2024-07-06 19:47] LABS: Base Excess Cord Venous Blood -3.4 mEq/L (-7.7-1.9); Cord Venous Blood HCO3 20 mmol/L (18.4-26.8); Cord Venous Blood PCO2 31 mmHg (30.4-57.2); Cord Venous Blood PO2 36 mmHg (14.1-43.3); Cord Venous Blood pH 7.42 (7.20-7.44)
[2024-07-06] MEDS: DIPHTHER/TETAN/PERTUS Vaccine (Tdap, Adol/Adult) 0.5mL IM ONE (19:50)
--- NOTE | 2024-07-06 20:05 | Anesthesia Procedure Note ---
Date of Service July 06, 2024 Anesthesia Post Epidural Note Vital Signs Vital Signs: Temp Pulse Resp BP Pulse Ox 36.7 C 71 18 125/70 96 07/06/24 19:00 07/06/24 20:01 07/06/24 19:45 07/06/24 20:01 07/06/24 19:06 Notes Mental Status: alert / awake / arousable and participated in evaluation Nausea / Vomiting: adequately controlled Pain: adequately controlled Airway Patency, RR, SpO2: stable & adequate BP & HR: stable & adequate Hydration State: stable & adequate Neuraxial Anesthesia: was administered and sensory block resolved Anesthetic Complications: no major complications apparent and Pt Satisfied with anesthetic care Epidural: Removed without complications and With tip intact
[2024-07-06] MEDS: IBUPROFEN 600 MG TAB PO PRN (23:06)
--- NOTE | 2024-07-06 23:07 | Communication Note ---
Date of Service: July 06, 2024 CTSP for concern about swelling. Patient notes some discomfort that seems normal for immediate . Patient had some swelling of the labia prior to pushing which increased with pushing. She has edematous labia and a very small, grape sized hematoma on the dependent portion of the right labia. There are no other concerning areas noted. Palpation of the lower vagina does not reveal hematoma or tenderness. REassured patient and nursing. Will continue to monitor, continue ice, recommend ibuprofen.
[2024-07-07] MEDS: DOCUSATE SODIUM 100 MG CAP PO SCH (01:11)
[2024-07-07] MEDS: ACETAMINOPHEN 325 MG TAB PO PRN (04:31)
--- NOTE | 2024-07-07 06:35 | Obstetrical Progress Note ---
Date of Service <Amber Liriano MD - Last Filed: 07/07/24 07:19> July 07, 2024 Assessment & Plan <Amber Liriano MD - Last Filed: 07/07/24 07:19> (1) care and examination: Plan PPD#1 s/p VAVD at 39 wga: Stable. Rh+, GBS neg, RI, vitals wnl, H/H noted Continue routine care, ambulation, diet as tolerated Plan for DC tonight if cleared by peds <Jacquelyn Cabral MD, FACOG - Last Filed: 07/07/24 07:20> (1) care and examination: Subjective <Amber Liriano MD - Last Filed: 07/07/24 07:19> Erica is a 33 y/o female who is PPD#1 following VAVD at 39 1/7 weeks, c/b shoulder dystocia ~3/10 abd pain/cramping, well managed on analgesics Voiding w/o issue Tolerating meals Ambulating normally Passing gas; no BM yet Having appropriate lochia Planning for exclusive . Constitutional: no fever, no chills or no sweats Respiratory: no dyspnea Cardiovascular: no chest pain, no palpitations or no calf pain Breast: no breast pain Gastrointestinal: no nausea or no vomiting Genitourinary (female): no dysuria Neurologic: no headache(s) no changes in vision, no headaches Physical Exam <Amber Liriano MD - Last Filed: 07/07/24 07:19> General: Alert, oriented. No acute distress. Cardiac: Regular rate and rhythm, no murmurs, rubs, or gallops. Respiratory: Clear to auscultation bilaterally. No increased work of breathing. Symmetrical chest rise. No respiratory distress. Abdomen: Soft, nontender, nondistended. Bowel sounds present. Uterus: Uterine fundus firm, nontender, palpable 2 cm below the umbilicus. Lower extremities: No lower extremity edema or swelling. No deep calf pain. Results & Data <Amber Liriano MD - Last Filed: 07/07/24 07:19> Vital Signs (Past 12 Hours) Vital Signs Temp Pulse Pulse Resp BP BP Pulse Ox 07/07/24 04:25 36.7 C 74 18 110/73 07/07/24 01:10 36.8 C 74 18 120/80 07/06/24 21:30 36.9 C 77 18 115/72 07/06/24 21:00 18 07/06/24 21:00 77 07/06/24 21:00 116/59 L 07/06/24 20:47 86 07/06/24 20:47 134/70 07/06/24 20:31 75 07/06/24 20:31 120/64 07/06/24 20:30 16 07/06/24 20:16 77 07/06/24 20:16 125/77 07/06/24 20:01 71 07/06/24 20:01 125/70 07/06/24 20:00 18 07/06/24 19:45 18 07/06/24 19:45 80 07/06/24 19:45 115/68 07/06/24 19:30 16 07/06/24 19:30 82 07/06/24 19:30 113/57 L 07/06/24 19:17 82 07/06/24 19:17 120/71 07/06/24 19:15 18 07/06/24 19:06 96 07/06/24 19:06 94 H 07/06/24 19:01 96 07/06/24 19:01 93 H 07/06/24 19:00 36.7 C 16 07/06/24 19:00 82 07/06/24 19:00 135/65 07/06/24 18:58 85 07/06/24 18:58 126/68 07/06/24 18:56 97 07/06/24 18:56 86 07/06/24 18:51 97 07/06/24 18:51 97 H 07/06/24 18:46 99 07/06/24 18:46 89 07/06/24 18:46 92 07/06/24 18:46 84 07/06/24 18:44 74 07/06/24 18:44 124/65 07/06/24 18:41 97 07/06/24 18:41 90 07/06/24 18:40 93 07/06/24 18:40 84 07/06/24 18:36 91 07/06/24 18:36 83 O2 Del Method 07/07/24 04:25 Room Air 07/07/24 01:10 Room Air 07/06/24 21:30 Room Air 07/06/24 21:00 07/06/24 21:00 07/06/24 21:00 07/06/24 20:47 07/06/24 20:47 07/06/24 20:31 07/06/24 20:31 07/06/24 20:30 07/06/24 20:16 07/06/24 20:16 07/06/24 20:01 07/06/24 20:01 07/06/24 20:00 07/06/24 19:45 07/06/24 19:45 07/06/24 19:45 07/06/24 19:30 07/06/24 19:30 07/06/24 19:30 07/06/24 19:17 07/06/24 19:17 07/06/24 19:15 07/06/24 19:06 07/06/24 19:06 07/06/24 19:01 07/06/24 19:01 07/06/24 19:00 07/06/24 19:00 07/06/24 19:00 07/06/24 18:58 07/06/24 18:58 07/06/24 18:56 07/06/24 18:56 07/06/24 18:51 07/06/24 18:51 07/06/24 18:46 07/06/24 18:46 07/06/24 18:46 07/06/24 18:46 07/06/24 18:44 07/06/24 18:44 07/06/24 18:41 07/06/24 18:41 07/06/24 18:40 07/06/24 18:40 07/06/24 18:36 07/06/24 18:36 Laboratory Results 07/07/24 06:46 Supervising Physician <Jacquelyn Cabral MD, FACOG - Last Filed: 07/07/24 07:20> Co-Signing Physician Notes Resident Physician Supervision Note: I interviewed and examined the patient. Discussed with Dr. Liriano and agree with findings and plan as documented in the note. Any exceptions or clarifications are listed here: Doing well. Bottom feeling better. Voiding without difficulty. Would like d/c later today. Instructions reviewed. Documented By: Jacquelyn Cabral MD, FACOG Resident Activity Tracking <Amber Liriano MD - Last Filed: 07/07/24 07:19> Resident Involvement: Resident Care Provided Care Provided: Adult Hospital Medicine
[2024-07-07 07:12] LABS: Hematocrit (blood only) 30.7 % (37.0-47.0); Hemoglobin 10.6 g/dl (12.0-16.0)
[2024-07-07] MEDS: PRENATAL VITAMIN 1 TAB PO SCH (07:50)
[2024-07-07 15:45] VITALS: RESP 20
[2024-07-07 19:04] VITALS: BP 124/78; PULSE 79; TEMP 98.2; O2SAT 97
[2024-07-07] MEDS ORDERED: bisacodyL 5 MG TABEC PO SCH (20:00)
== END 2024-07-07 20:20 | disposition home or self-care (01) | DRG 807 ==
LOC: 4S1 07:25 → 4E2 21:38